=== PATIENT | female | born 1940 | race Caucasian/White ===

== ENCOUNTER 2017-04-25 07:14 | Day surgery (SDC) | payer MEDICARE, OTHER ==
--- NOTE | ~2017-04-25 | EGD ---
EGD REPORT [facility] [address] [place]. [id number] NAME: PAULINA FRAZIER : [birth year] STATUS : REG [facility] [place] PAT#: [id number] AGE: 76 ADM/REG DATE : 04/25/17 MR#: [id number] REPORT SERV DATE: 04/25/17 DICTATED BY: OLGA SANDHU III DATE: 04/25/17 REPORT STATUS : Draft TRANSCRIBED BY: [facility] DATE: 04/25/17 Endoscopy Center Patient Name: Paulina Frazier Date of : 1940 Attending MD: OLGA SANDHU III, MD Procedure Date No Time: 04/25/2017 Procedure: Colonoscopy Indications: Screening for colorectal malignant neoplasm Referring MD: NCIKI MCPHERSON Medicines: Propofol per Anesthesia Complications: No immediate complications. Procedure: Pre-Anesthesia Assessment: - ASA Grade Assessment: III - A patient with severe systemic disease. After I obtained informed consent, the scope was passed under direct vision. Throughout the procedure, the patient's blood pressure, pulse, and oxygen saturations were monitored continuously. The PCF [id number] was introduced through the anus and advanced to the cecum, identified by appendiceal orifice and ileocecal valve. The colonoscopy was performed with ease. The patient tolerated the procedure well. The quality of the bowel preparation was good. Findings: Multiple diverticula were found in the sigmoid colon. Two sessile polyps were found in the cecum. The polyps were 4 to 5 mm in size. These polyps were removed with a cold biopsy forceps. Resection and retrieval were complete. Two sessile polyps were found in the sigmoid colon. The polyps were 10 mm in size. These polyps were removed with a hot snare. Resection and retrieval were complete. These polyps were removed with a cold snare. Resection and retrieval were complete. Internal hemorrhoids were found during retroflexion. Impression: - Diverticulosis in the sigmoid colon. - Two 4 to 5 mm polyps in the cecum. Resected and retrieved. - Two 10 mm polyps in the sigmoid colon. Resected and retrieved. - Internal hemorrhoids. Recommendation: - Patient has a contact number available for emergencies. The signs and symptoms of potential delayed complications were discussed with the patient. Return to EGD REPORT [address] [address] NAME: PAULINA FRAZIER EDGAR : [birth year] STATUS : REG [facility] [place] PAT#: [id number] AGE: 76 ADM/REG DATE : 04/25/17 MR#: [id number] REPORT SERV DATE: 04/25/17 DICTATED BY: OLGA SANDHU III DATE: 04/25/17 REPORT STATUS : Draft TRANSCRIBED BY: [employer] DATE: 04/25/17 normal activities tomorrow. Written discharge instructions were provided to the patient. - Discharge patient to home. - High fiber diet indefinitely. - Continue present medications. - Await pathology results. Procedure Code(s): --- Professional --- 76864, Colonoscopy, flexible, proximal to splenic flexure; with removal of tumor(s), polyp(s), or other lesion(s) by snare technique 87270, 59, Colonoscopy, flexible, proximal to splenic flexure; with biopsy, single or multiple Diagnosis Code(s): --- Professional --- K64.8, Other hemorrhoids K57.30, Diverticulosis of large intestine without perforation or abscess without bleeding D12.5, Benign neoplasm of sigmoid colon D12.0, Benign neoplasm of cecum Z12.11, Encounter for screening for malignant neoplasm of colon CPT copyright 2013 [employer]. All rights reserved. The codes documented in this report are preliminary and upon tailor's aide review may be revised to meet current compliance requirements. OLGA SANDHU III, MD 04/25/2017 10:10 AM This report has been signed electronically. Number of Addenda: 0 Note Initiated On: 04/25/2017 9:35 AM Scope Withdrawal Time 0 hours 12 minutes 38 seconds [id number] [place] [id number]
[~2017-04-25 07:14] MED LIST: ADVIL PO; ALLEGRA180 PO; BREO ELLIPTA INH; MURO1285% OPH; MURO5OOIN OPH; PRILO PO; PROAIR HFA INH; SINGULAIR1 PO; SYN112 PO; VITAMIN D31000 UNIT PO
== END 2017-04-25 23:59 | disposition home or self-care (01) ==
LOC: DMU 07:14
PROVIDERS: Internal Medicine Gastroenterology
PROC: 0DBH8ZX Excision of Cecum, Via Natural or Artificial Opening Endoscopic, Diagnostic (ICD-10-PCS; principal; 2017-04-25 09:30)
PROC: 0DBN8ZX Excision of Sigmoid Colon, Via Natural or Artificial Opening Endoscopic, Diagnostic (ICD-10-PCS; 2017-04-25 09:30)
DX: Z12.11 Encounter for screening for malignant neoplasm of colon (principal); D12.5 Benign neoplasm of sigmoid colon; D12.0 Benign neoplasm of cecum; K64.8 Other hemorrhoids; K57.30 Diverticulosis of large intestine without perforation or abscess without bleeding; I10 Essential (primary) hypertension; J45.909 Unspecified asthma, uncomplicated; E03.9 Hypothyroidism, unspecified; M19.90 Unspecified osteoarthritis, unspecified site; E78.00 Pure hypercholesterolemia, unspecified; Z87.01 Personal history of pneumonia (recurrent); Z98.890 Other specified postprocedural states
CPT/HCPCS: 88305